=== PATIENT | female | born 1975 | race Caucasian/White ===

== ENCOUNTER 2017-10-18 10:41 | Emergency (ER) | payer OTHER, SELFPAY ==
[2017-10-18] MEDS ORDERED: AMOXicillin 250 MG CAP ONE (11:03)
== END 2017-10-18 11:15 | disposition home or self-care (01) ==
LOC: BURERS 10:41
DX: J02.9 Acute pharyngitis, unspecified (principal)
CPT/HCPCS: 99283

== ENCOUNTER 2019-10-25 14:29 | Outpatient (CLI) | payer OTHER ==
--- NOTE | 2019-10-25 19:44 | RAD ---
LEFT RIBS FOUR VIEWS: 10/25/19 No fracture or area of bony destruction was seen. No abnormalities of the ribs were apparent. The adj acent lung is clear. IMPRESSION: No acute findings. POS: HOME
== END 2019-10-25 14:30 | disposition home or self-care (01) ==
LOC: BURRAD 14:29
PROVIDERS: ATTEND Physician Assistant
DX: R07.81 Pleurodynia (principal)